=== PATIENT | female | born 1995 | race Two or more races ===

== ENCOUNTER 2017-11-26 13:41 | Emergency (ER) | payer MEDICAID, OTHER ==
[~2017-11-26] VITALS: Ht 165.1 cm; Wt 61.2 kg
[2017-11-26 14:58] VITALS: BP 108/59
[2017-11-26] MEDS ORDERED: IBUPROFEN 800 MG TAB PO ONE (16:00)
== END 2017-11-26 16:20 | disposition home or self-care (01) ==
LOC: ER 13:44
DX: S00.12XA Contusion of left eyelid and periocular area, initial encounter (principal); S00.511A Abrasion of lip, initial encounter; F17.210 Nicotine dependence, cigarettes, uncomplicated; Y08.89XA Assault by other specified means, initial encounter; Y93.89 Activity, other specified; Y99.8 Other external cause status; Y92.89 Other specified places as the place of occurrence of the external cause
CPT/HCPCS: 70450; 70486

== ENCOUNTER 2018-02-22 22:08 | Emergency (ER) | payer OTHER, MEDICAID | END 2018-02-22 23:58 | disposition left against medical advice (07) | LOC: ER 22:08 | DX: R10.9 Unspecified abdominal pain (principal); Z53.21 Procedure and treatment not carried out due to patient leaving prior to being seen by health care provider ==